=== PATIENT | female | born 1985 | race African-American/Black ===

== ENCOUNTER → 2016-04-24 | Outpatient (CLI) | payer OTHER ==
--- NOTE | 2016-04-24 15:51 | RAD ---
Indication left leg pain. Grayscale color Doppler and spectral imaging was performed. Examination was targeted to the veins of the left lower extremity. The common femoral, femoral and popliteal vessels demonstrate normal flow compressibility and augmentation. No thrombus is seen. The visualized calf veins appeared normal. IMPRESSION: Negative left lower extremity venous analysis for DVT
== END | disposition home or self-care (01) ==
LOC: US 15:19
PROVIDERS: ATTEND Obstetrics & Gynecology
DX: M79.605 Pain in left leg (principal); M79.89 Other specified soft tissue disorders
CPT/HCPCS: 93971